=== PATIENT | male | born 1970 | race Caucasian/White ===

== ENCOUNTER 2021-12-25 13:46 | Outpatient (CLI) | payer OTHER, SELFPAY ==
--- NOTE | ~2021-12-25 | XR_ITS ---
EXAMINATION: XR lumbar spine 2-3V EXAM DATE: 12/25/2021 14:07 INDICATION: Back Pain x8mo, hx of disk compression. TECHNIQUE: Lumber spine frontal, lateral, lateral L5-S1 projections for interpretation. Comparison is made to prior examination from 07/12/2015. FINDINGS: There is mild to moderate disc disease at L1-L4. There is mild to moderate lumbar facet ar thropathy. There are no bony erosions identified. The vertebral bodies are aligned in the AP dimensio n. Paraspinal soft tissue is unremarkable. IMPRESSION: Mild to moderate lumbar spondylosis. Reviewed, dictated and finalized at location G. [employer]PA[employer]ER
== END 2021-12-25 13:47 | disposition home or self-care (01) ==
LOC: CHSIMG 13:49
PROVIDERS: PCP Internal Medicine; Visit Provider Internal Medicine
DX: M54.9 Dorsalgia, unspecified (principal)
CPT/HCPCS: 72100

== ENCOUNTER 2023-07-28 13:29 | Outpatient (CLI) | payer OTHER, SELFPAY ==
--- NOTE | ~2023-07-28 | XR_ITS ---
XR knee LT min 4V 07/28/2023 13:47 Indication: Left knee pain Procedure: 4 views left knee Comparison: No prior studies for comparison. Findings: No fracture, subluxation or dislocation. No significant joint effusion. There is mild trico mpartment osteoarthritis. No significant joint effusion. Impression: 1: Mild tricompartment osteoarthritis. Reviewed, dictated and finalized at location L. Impression: 1: Mild tricompartment osteoarthritis.
== END 2023-07-28 13:30 | disposition home or self-care (01) ==
LOC: CHSIMG 13:33
PROVIDERS: PCP Internal Medicine; Visit Provider Nurse Practitioner Family
DX: M25.562 Pain in left knee (principal); M17.12 Unilateral primary osteoarthritis, left knee
CPT/HCPCS: 73564

== ENCOUNTER 2023-08-06 15:53 | Outpatient (RCR) | payer OTHER, SELFPAY ==
--- NOTE | 2023-08-06 17:39 | PTOPEVAL1 ---
Assessment and note entered by Sherita Bynum, PT Evaluation Information Assessment Status Evaluation Diagnosis L knee pain Subjective Information Kumar Pollock reports he started having left knee pain about 2 months ago when he slipped while going down the stairs into his pool. He wore a brace and took a few days off work. 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 He had a return of pain about 2 weeks ago that made it hard to walk and work. He went to his doctor on 07/28/23 and then he returned on 07/29/23 and had an injection. He has been off work since last week. He has noted decreased pain since having the injection and with resting his knee. He notes pain now occurs with full extension or flexion and occasionally with walking. He feels like his left knee is shaky and could give out but it has not actually given out. He has noticed popping in the knee as well but no catching. He had x-rays last week that showed osteoarthritis. Reported Pain Level Pain Score 0: Self Report Assessment PT Clinical Summary Kumar Pollock presents with intermittent left knee pain for the last 2 months since slipping while descending his pool stairs. He has difficulty with walking, operating a standing fork lift, and with full left knee flexion and extension. He objectively demonstrates tenderness on the left medial knee joint line, decreased and painful left knee AROM, decreased left knee and hip strength, impaired gait, and positive special tests indicating possible meniscus injury. He will benefit from skilled PT to address these limitations. Plan of Care Interventions Electrical Stimulation,Hot Pack/Cold Pack, Intermittent Compression,Manual Therapy,Neuro Re- education,Patient/Caregiver Educati,Therapeutic Activities,Therapeutic Exercise PT Services Indicated Yes Treatment Frequency and 3 times a week for 6 visits then 2 times a week Duration for 4 additional visits to total 10 visits. These treatments will address the objective and functional deficits as defined above. The patient will be advanced safely and appropriately in order for the patient to progress towards his/her prior level of function. Additional exercises will be introduced and as well as a comprehensive home exercise program upon discharge, if needed, ?to ensure carryover of functional gains achieved in the clinic. This treatment plan has been reviewed and agreement upon by the patient.
--- NOTE | 2023-08-06 17:39 | OPREHPOC ---
Outpatient Therapy Plan of Care This is a Multidisciplinary Plan of Care that may contain components documented by all disciplines (PT, OT, and ST.) PT Problem 1 PT Problem #1 Knowledge Deficit PT Goal 1 Goal The patient will be independent in a home exercise program to continue after discharge from formal PT. Target Visit 10 PT Problem 2 PT Problem #2 Pain PT Goal 1 Goal The patient will report no greater than 2/10 left knee pain with daily activities. Target Visit 10 PT Problem 3 PT Problem #3 Impaired Range of Motion PT Goal 1 Goal The patient will demonstrate 0-125 degrees of active left knee ROM to improve gait. Target Visit 10 PT Problem 4 PT Problem #4 Impaired Strength PT Goal 1 Goal The patient will demonstrate at least 4+/5 strength to improve functional mobility. PT Problem 5 PT Problem #5 Impaired Functional Mobil PT Goal 1 Goal The patient will perceive less than 30% disability per the LEFS. Target Visit 10
--- NOTE | 2024-02-04 11:05 | PCPTNOTE ---
02/04/24: Pt only attended 3 PT sessions and he was last seen on 08/11/23. He is discharged. -Sherita Bynum, PT
== END 2023-08-11 20:00 | disposition home or self-care (01) ==
LOC: CHSPT 15:53
PROVIDERS: PCP Internal Medicine; Visit Provider Internal Medicine
DX: M25.561 Pain in right knee (principal)
CPT/HCPCS: 97110; 97150; 97161; 97530

== ENCOUNTER 2025-06-01 09:35 | Outpatient (CLI) | payer BC, SELFPAY ==
--- NOTE | ~2025-06-01 | XR_ITS ---
XR sinus min 3V 06/01/2025 09:59 Indication: Chronic sinusitis Procedure: 5 views of the paranasal sinuses Comparison: No prior studies for comparison. Findings: Sinuses are pneumatized without significant opacification or air-fluid level. No nasal sept al deviation. Right mastoid air cells are pneumatized. There is opacification of the left mastoid air cells,, cannot exclude mastoid effusion. Impression: 1: No significant abnormality of the paranasal sinuses. Reviewed, dictated and finalized at location A. Impression: 1: No significant abnormality of the paranasal sinuses.
== END 2025-06-01 09:36 | disposition home or self-care (01) ==
LOC: CHSIMG 09:40
PROVIDERS: PCP Internal Medicine; Visit Provider Internal Medicine
DX: J32.9 Chronic sinusitis, unspecified (principal)
CPT/HCPCS: 70220